=== PATIENT | male | born 1965 | race Two or more races ===

== ENCOUNTER 2016-08-23 13:07 | Emergency (ER) | payer OTHER ==
[2016-08-23 13:29] VITALS: BP 154/94; PULSE 76; RESP 18; TEMP 98.1; O2SAT 95
[2016-08-23] MEDS ORDERED: PROPARACAINE 0.5% 15 ML OPHT DROP LEFTEYE ONE (13:29)
--- NOTE | 2016-08-23 13:42 | UCPHY ---
H & P Time Seen by Provider: 08/23/16 13:26 Patient Type: New HPI/ROS: This patient has a sensation of something in his eye. He explains that he do was working in the yd and then took a shower and thinks that something was in his scalp like a leaf that went into his eye and is causing symptoms. He has a sense of something was caught under the upper eyelid. He had a lot of tearing at home and thinks the foreign body might have resolved but has irritation to the Rt. eye since the symptoms started. The triage, mentioning left eye's incorrect. The symptoms are on the right ROS: No significant visual change. No other complaints and 5 point ROS is otherwise negative. Past Medical/Surgical History: Otherwise healthy Smoking Status: Never smoked Physical Exam: Physical Exam Vital signs are normal. General: No acute distress HEENT: Atraumatic. Eyes: Pupils equal and react to light. Extraocular motions are intact. Conjunctival injection is present in the right eye. On slit-lamp examination. Anesthesia there is evidence of multiple superficial corneal abrasions to the right cornea suspicious for a foreign body to the upper eyelid with blinking that caused the abrasions. With eyelid eversion appreciate no foreign bodies. Also inverted the lower eyelid. No foreign bodies are appreciated. With lashes are normal. Left eye exam is normal. With fluorescein dye exam there is no other findings besides the superficial corneal abrasions noted above. Skin: No rash or pallor. Neuro: Alert Constitutional: Initial Vital Signs Temperature (C) 36.7 C 08/23/16 13:25 Heart Rate 76 08/23/16 13:25 Respiratory Rate 18 08/23/16 13:25 Blood Pressure 154/94 H 08/23/16 13:25 O2 Sat (%) 95 08/23/16 13:25 O2 Delivery Mode Room Air Allergies/Adverse Reactions: cefoxitin sodium [From Mefoxin] Allergy (Verified 08/23/16 13:24) Home Medications: Medication Instructions Recorded Atorvastatin Calcium 08/23/16 Hydrocodone/APAP 5/325 [[place] 1 - 2 tab PO Q4PRN PRN #15 tab 08/23/16 5/325 (*)] Ofloxacin 0.3% [Ocuflox 0.3% (RX)] 2 drops EACHEYE Q1 #1 btl 02/19/17 Warfarin Sodium 08/23/16 Medical Decision Making ED Course/Re-evaluation: I counseled this patient regarding corneal abrasion - Data Points Medications Given: Discontinued Medications Proparacaine HCl (Alcaine 0.5%) 1 drops LEFTEYE ONCE ONE Stop: 08/23/16 13:30 Last Admin: 08/23/16 13:34 Dose: 1 drops Departure - Departure Disposition: Home, Routine, Self-Care Clinical Impression: Corneal abrasion Qualifiers: Encounter type: initial encounter Laterality: right Qualified Code(s): S05.01XA - Injury of conjunctiva and corneal abrasion without foreign body, right eye, initial encounter Condition: Good Instructions: Corneal Abrasion (ED) Additional Instructions: Diagnosis: Corneal abrasion Plan: Ocuflox antibiotic drops Ibuprofen-600 mg per 6 hours and Tylenol or Vicodin as needed for pain Follow up with the slot service specialist if her symptoms are not improving over the next 3-5 days with treatment plan. Referrals: NONE *PRIMARY CARE P,. [Primary Care Provider] - As per Instructions Katina Garza MD [Medical Doctor] - As per Instructions Prescriptions: Hydrocodone/APAP 5/325 [[place] 5/325 (*)] 1 - 2 tab PO Q4PRN PRN #15 tab PRN Reason: Pain Ofloxacin 0.3% [Ocuflox 0.3% (RX)] 2 drops EACHEYE Q1 #1 btl - PQRS PQRS Measurement: NA
== END 2016-08-23 13:43 | disposition home or self-care (01) ==
LOC: CED 13:07
DX: S05.01XA Injury of conjunctiva and corneal abrasion without foreign body, right eye, initial encounter (principal)
CPT/HCPCS: G0463-PO